=== PATIENT | female | born 1990 | race African-American/Black ===

== ENCOUNTER 2016-05-13 00:40 | Emergency (ER) | payer OTHER ==
[~2016-05-13] VITALS: Ht 172.7 cm; Wt 75.0 kg
[~2016-05-13 00:40] MED LIST: DIPH25 PO; MACR100C PO; MEDR4PAK3 PO; TRI-TAB PO
[2016-05-13 00:41] VITALS: BP 135/84; PULSE 86; RESP 18; TEMP 97.8; O2SAT 99
[2016-05-13] MEDS ORDERED: CLINDAMYCIN 150 MG CAP PO ONE (01:15)
[2016-05-13] MEDS ORDERED: NAPR500 PO (01:19)
[2016-05-13] MEDS ORDERED: CLIN1CAP5 PO (01:19)
--- NOTE | 2016-05-13 01:19 | PD ---
HPI Chief Complaint: Oral / Dental Pain or Problem Time Seen by Provider: 01:14 Travel History International Travel<30 days: No Contact w/Intl Traveler<30days: No Traveled to known affect area: No History of Present Illness HPI Patient comes in complaining of left lower dental pain ongoing intermittently over the past 2-3 weeks. Pain got worse on Friday and became constant. Patient has been taking [id number] Tylenol and ibuprofen with some improvement of symptoms. Pain is worse with eating, drinking, talking, or palpating the area. Patient denies any fevers, headaches, neck pain, , chest pain, shortness of breath, or neck pain. Patient reports she has an appointment with her dentist on . PFSH Past Medical History Diminished Hearing: No Hepatitis: No LMP: 04/30/16 : 0 Social History Alcohol Use: No Tobacco Use: No Substance Use: No Allergies-Medications (Allergen,Severity, Reaction): Coded Allergies: Azithromycin (Verified Allergy, Intermediate, 03/06/14) Reported Meds & Prescriptions Reported Meds & Active Scripts Active Naprosyn (Naproxen) 500 Mg Tab 500 Mg PO Q12HR PRN Clindamycin (Clindamycin HCl) 150 Mg Cap 2 Tab PO Q6H 10 Days Benadryl 25 Mg Cap (Diphenhydramine Hcl) 25 Mg Cap 25 Mg PO Q6 PRN Medrol Dosepak (Methylprednisolone) 4 Mg Mauricio 4 Mg PO DIRECTED TAKE DIRECTED Macrobid (Nitrofurantoin Macrocrystals) 100 Mg Cap 100 Mg PO BID 7 Days Reported Tri-Sprintec (Ethinyl Estradiol/Norgestimate) 1 Tab Tab 1 Tab PO DAILY Review of Systems Except as stated in HPI: all other systems reviewed are Neg Physical Exam Narrative GENERAL: Well-developed, well nourished, in no acute distress, and non-ill appearing. SKIN: Warm and dry. HEAD: Atraumatic. Normocephalic. EYES: Pupils equal and round. EOMI. No scleral icterus. No injection or drainage. ENT: No nasal bleeding or discharge. Mucous membranes pink and moist. Tympanic membranes pearly sunshine bilaterally. Posterior pharynx nonerythematous without exudate. Uvula is midline. Patient has what appears to be impacted wisdom tooth on the left lower side of her mouth. It is tender to palpation with inflammation and mild edema of the surrounding gumline. There is no visible or palpable abscess noted. Floor of the mouth, submandibular, submental are all soft palpation. Patient speaking in full sentences and swallowing own saliva. NECK: Trachea midline. No cervical lymphadenopathy. Supple. No nuclear rigidity. RESPIRATORY: No accessory muscle use. No respiratory distress. MUSCULOSKELETAL: No obvious deformities. No clubbing. No cyanosis. No edema. Full range of motion. NEUROLOGICAL: Awake and alert. No obvious cranial nerve deficits. Motor grossly within normal limits. Normal speech. PSYCHIATRIC: Appropriate mood and affect; insight and judgment normal. Data Data Last Documented VS Vital Signs Date Time Temp Pulse Resp B/P Pulse Ox O2 Delivery O2 Flow Rate FiO2 05/13/16 00:41 97.8 86 18 135/84 99 Room Air Orders Clindamycin (Cleocin) (05/13/16 01:15) [facility] Medical Decision Making Medical Screen Exam Complete: Yes Emergency Medical Condition: Yes Differential Diagnosis Dental abscess, dental infection, dentalgia, other Narrative Course The patient presented with dental pain. There is no fever. There is no significant facial swelling or evidence of cellulitis. There is no evidence of drainable abscess at this time. There is no evidence of significant deep or invading abscess at this time. The patient will be placed on antibiotics and pain medication. The patient was instructed to follow up with a dentist. Warnings were discussed with the patient regarding worsening of infection. The patient is to return if pain worsens, develops progressive swelling or facial redness or fever. The patient agrees with plan. Dental block was performed with adequate analgesia. Patient in no obvious distress upon re-evaluation. Patient was asked if they wanted to speak to my attending, which the patient did not wish to do at this time. Any questions/concerns in reference to patient diagnosis/condition discussed and clarified prior to patient's discharge. Reinforced sheer importance of close follow up with patient's primary physician or primary care clinic and dentist. Instructed patient to return to ED immediately, if symptoms return/worsen. Pt showed understanding of above instructions. Further instructions and recommendations were detailed in discharge paperwork. Pt ambulated without difficulty out of ED at discharge. Procedures Procedure Narrative Verbal consent was obtained. Digital block was performed using 5% Marcaine with epi. Patient tolerated procedure well. There is no complications. Patient reported adequate analgesic effect and improvement of pain. Diagnosis Primary Impression: Dentalgia Patient Instructions: Dental Abscess (GEN), Dental Caries (DC), General Instructions Additional Instructions: Follow-up with your primary care physician and dentist as soon as possible. Keep your appointment with your dentist on . Rinse mouth with warm salt water gargles. Take all medication as prescribed. Return to the emergency department if symptoms get worse. Med/Other Pt SpecificInfo: Prescription(s) given Scripts Naproxen (Naprosyn)500 Mg [id number] Mg PO Q12HR PRN (PAIN SCALE 1 TO 10) #14 TAB Ref 0 Prov:Flores Gordon MD 05/13/16 Clindamycin 150 Mg Cap2 Tab PO Q6H 10 Days Ref 0 Prov:Flores Gordon MD 05/13/16 Disposition: 01 DISCHARGE HOME Condition: Stable Angelo Austin May 13, 2016 01:18
== END 2016-05-13 01:33 | disposition home or self-care (01) ==
LOC: NEPB 00:40
DX: K08.89 Other specified disorders of teeth and supporting structures (principal)
CPT/HCPCS: 64400